=== PATIENT | female | born 1970 | race Caucasian/White ===

== ENCOUNTER 2018-03-28 06:48 | Emergency (ER) | payer OTHER ==
[~2018-03-28] VITALS: Ht 165.1 cm; Wt 60.8 kg
[~2018-03-28 06:48] MED LIST: BIRTH CONTROL; CIPRO500 MG PO; FLAGYL500 MG PO; HYDROCODONE-APA1 TA1 PO; RESTORA CAPSUL1 EACH; ZOFRAN ODT4 MG PO
[2018-03-28 07:17] LABS: POC CA IONIZED 5.2 mg/dL (4.5-5.3); POC CREATININE 0.9 mg/dL (0.6-1.3); POC HEMOGLOBIN 14.6 g/dL (12.0-17.0); POC POTASSIUM 3.9 mmol/L (3.5-4.9)
[2018-03-28 07:23] LABS: ABSOLUTE LYMPHOCYTES 2.1 thou/uL (0.8-5.3); ABSOLUTE MONOCYTES 0.4 thou/uL (0.0-1.2); ABSOLUTE NEUTROPHILS 3.3 thou/uL (1.6-8.1); BASOPHILS 0.4 %; EOSINOPHILS 0.7 %; HEMATOCRIT 41.7 % (37.0-47.0); HEMOGLOBIN 13.8 gm/dL (12.0-15.0); LYMPHOCYTES 35.5 %; MCH 29.7 pg (26.0-34.0); MCHC 33.1 g/dL (28.0-37.0); MCV 89.9 fL (80.0-100.0); MONOCYTES 6.4 %; MPV 8.2 fl. (7.2-11.1); NUCLEATED RBCS 0 /100WBC; PLATELET COUNT* 257 thou/uL (150-400); RBC 4.64 mil/uL (4.20-5.00); RDW-CV 12.8 % (10.5-14.5); WBC 5.8 thou/uL (4.0-11.0)
[2018-03-28 07:28] LABS: ANION GAP 10 mmol/L (7-16); BUN 13 mg/dL (7-18); CALCIUM 8.8 mg/dL (8.5-10.1); CHLORIDE 102 mmol/L (98-107); CO2 25 mmol/L (21-32); CREATININE 0.9 mg/dL (0.6-1.3); GLUCOSE 119 mg/dL (70-99); POTASSIUM 3.8 mmol/L (3.5-5.1); SODIUM 137 mmol/L (136-145)
[2018-03-28 07:39] LABS: ALBUMIN 3.7 g/dL (3.4-5.0); ALKALINE PHOSPHATASE 28 U/L (46-116); LIPASE 151 U/L (73-393); NT-PRO BRAIN NAT PEPTIDE 90 pg/mL (<300); SGOT 18 U/L (15-37); SGPT 17 U/L (30-65); TOTAL BILIRUBIN 1.9 mg/dL (<0.1-1.0); TOTAL PROTEIN 7.6 g/dL (6.4-8.2); TROPONIN-I LEVEL <0.06 ng/mL (<0.06)
[2018-03-28] MEDS ORDERED: ADULT ASPIRIN81 MG PO (12:08)
[2018-03-28 12:20] VITALS: BP 123/78
--- NOTE | 2018-03-28 13:51 | EKG ---
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: Carol HUNT : 1970 Requested By: Morgan Krishnan Order Number: [id number] MD: Brian Arora Measurements Intervals [place] Rate: 59 P: 59 DE: 162 QRS: 36 QRSD: 83 T: 29 QT: 405 QTc: 402 Interpretive Statements Sinus rhythm Low voltage, extremity and precordial leads No previous ECG available for comparison Electronically Signed On 03-28-2018 13:51:03 CDT by Brian Arora [email or web address] <ELECTRONICALLY SIGNED> By: Brian Arora MD, [facility] 03/28/18 [id number] Brian Arora MD, FACC /EPI
== END 2018-03-28 12:20 | disposition home or self-care (01) ==
LOC: M.ERS 06:48
PROVIDERS: Emergency Medicine
DX: I63.9 Cerebral infarction, unspecified (principal)